=== PATIENT | female | born 1950 | race Caucasian/White ===

== ENCOUNTER 2016-12-14 16:51 | Inpatient (IN) | payer OTHER ==
[~2016-12-14] VITALS: Ht 160 cm; Wt 59.2 kg
[~2016-12-14 16:51] MED LIST: ACET325T33 PO
[2016-12-14 22:30] VITALS: BP 133/83; RESP 18
[2016-12-14 22:33] VITALS: Ht 160 cm; Wt 59.2 kg
[2016-12-14] MEDS ORDERED: BISACODYL (EC) 5 MG TAB PO PRN (23:30)
[2016-12-14] MEDS ORDERED: ACETAMINOPHEN 325 MG TAB PO PRN (23:30)
[2016-12-15] MEDS: PANTOPRAZOLE (EC) 40 MG TAB PO SCH (06:00)
[2016-12-15 07:05] LABS: ADD SCAN DIFF NO
[2016-12-15 07:11] LABS: BASOPHILS % 0.5 % (0.0-2.0); EOSINOPHILS # 0.3 10^3/ul (0.0-0.5); EOSINOPHILS % 7.1 % (0.0-7.0); HEMATOCRIT 34.9 % (37.0-47.0); HEMOGLOBIN 11.2 g/dl (12.0-16.0); LYMPHOCYTES # 1.7 10^3/ul (0.8-2.9); LYMPHOCYTES % 39.7 % (15.0-51.0); MEAN CORPUSCULAR HEMOGLOBIN 30.4 pg (29.0-33.0); MEAN CORPUSCULAR HGB CONC 32.1 g/dl (32.0-37.0); MEAN CORPUSCULAR VOLUME 94.8 fl (82.0-101.0); MEAN PLATELET VOLUME 10.6 fl (7.4-10.4); MONOCYTE # 0.3 10^3/ul (0.3-0.9); NEUTROPHIL # 1.9 10^3/ul (1.6-7.5); NEUTROPHILS % 44.5 % (39.0-77.0); PLATELET COUNT 249 10^3/UL (140-415); RED BLOOD COUNT 3.68 10^6/ul (4.20-5.40); RED CELL DISTRIBUTION WIDTH 14.8 % (11.5-14.5); WHITE BLOOD COUNT 4.2 10^3/ul (4.8-10.8)
[2016-12-15 07:21] VITALS: BP 125/78; RESP 18
[2016-12-15 07:49] LABS: ALBUMIN 3.5 g/dl (3.3-4.9)
[2016-12-15 07:50] LABS: POTASSIUM 3.7 mmol/L (3.5-5.1)
[2016-12-15 07:52] LABS: ALBUMIN/GLOBULIN RATIO 0.89; BILIRUBIN,INDIRECT 0.6 mg/dl (0-1.1); BILIRUBIN,TOTAL 0.6 mg/dl (0.2-1.3); CREATININE 0.68 mg/dl (0.44-1.00); TOTAL PROTEIN 7.4 g/dl (6.1-8.1)
[2016-12-15 07:53] LABS: CALCIUM 9.1 mg/dl (8.4-10.2)
[2016-12-15] MEDS: ENOXAPARIN 40 MG/0.4 ML SYG SC SCH (08:36)
--- NOTE | 2016-12-15 13:08 | HP ---
Date/Time of Note Date/Time of Note DATE: 12/15/16 TIME: 12:51 Assessment/Plan VTE Prophylaxis VTE Prophylaxis Intervention: ambulation Assessment/Plan Chief Complaint/Hosp Course 1. s/p left hip fracture and union, evident deformity and shortening of the left hip. 2. S/p right wrist fracture. Deformity right wrist 3. Pain in left elbow, deformity and possible dislocation 4. Left shoulder pain. 5. Left foot deformity and pain 6. Osteoporosis 7. Liable mood Problems: Assessment/Plan 1. Few X-rays are ordered as well as CT scans 2. Dr Bunn for orthopedic surgery 3. Noncompliance discussed with nurses HPI/ROS Admit Date/Time Admit Date/Time December 14, 2016 at 21:49 Hx of Present Illness Pt reported fracture of the left hip in [place] 2 month ago, there were no surgical repair, she was transferred from hospital to hospital and eventually her left hip were healed with a deformity and shortened her left leg. Pt reported fall and fracture in left wrist 2 years ago. Pt was seen in [facility] for 3 days, there were some X-rays done. Pt was transferred to [facility] 12/14/2016 because it is her network hospital [facility] Constitutional: other (limping problem) Eyes: no complaints ENT: no complaints Respiratory: no complaints Cardiovascular: no complaints Gastrointestinal: no complaints Genitourinary: no complaints Musculoskeletal: bone/joint pain, other (left elbow deformity. left foot pain 6 /10. limping. left shoulder pain and decreased ROM, parestesia left arm), restricted range of motion, swelling Skin: no complaints Neurologic: no complaints Endocrine: no complaints Lymphatic: no complaints Psychological: no complaints, No anxiety, No confusion, No depression, No nl mood/affect, No other, No suicidal PMH/Family/Social Past Medical History Medical History: other (consider herself heALTHY) Past Surgical History Past Surgical Hx: no surgical history Family History Significant Family History: other (HAS NO PLACE TO LIVE, HAS SON IN [facility], OTHER SON ) Social History Alcohol Use: none Smoking Status: Never smoker Drug Use: none Exam/Review of Systems Vital Signs Vitals Vital Signs Date Time Temp Pulse Resp B/P Pulse Ox O2 Delivery O2 Flow Rate FiO2 12/15/16 07:21 98.4 68 18 125/78 98 Exam Exam Mood liable female, refusing medications Constitutional: alert, oriented Psych: no complaints Head: normocephalic Eyes: nl conjunctiva ENMT: nl external ears & nose Neck: supple Respiratory: clear to auscultation Cardiovascular: regular rate and rhythm Genitourinary - Female: nl adnexae Musculoskeletal: muscle weakness, range of motion (decreased left shoulder and left elbow. Definite shortening left hip, deformities of the left foot and right wrist) Extremities: normal pulses Neurological: [employer] II-XII intact Skin: nl turgor Lymph: nl lymph nodes Labs Result Diagram: 12/15/16 0506 12/15/16 0506 Medications Medications Current Medications Acetaminophen (Tylenol Tab) 650 mg Q6H PRN PO PAIN AND OR ELEVATED TEMP; Start 12/14/16 at 23:30 Pantoprazole (Protonix Tab) 40 mg DAILY@06 PO ; Start 12/15/16 at 06:00 Enoxaparin Sodium (Lovenox) 40 mg DAILY SC ; Start 12/15/16 at 09:00 Bisacodyl (Dulcolax) 10 mg BID PRN PO CONSTIPATION; Start 12/14/16 at 23:30 ALEX SAN December 15, 2016 13:01
--- NOTE | 2016-12-15 13:48 | RADRPT ---
PROCEDURE: XR Foot. CLINICAL INDICATION: Deformity TECHNIQUE: AP and lateral views of the left foot are available for review. COMPARISON: None available FINDINGS: The osseous structures are markedly demineralized, limiting detail. There is no cortical destructio n or soft tissue gas. No definite acute osseous abnormality is identified. Hammertoe deformities a re seen at the lesser metatarsals. Enthesopathic changes are noted about the calcaneus. Vascular c alcifications. IMPRESSION: 1. Decreased bone mineral density without radiographic evidence of an acute osseous abnormality or cortical destruction. 2. Please note that MRI is more sensitive in this setting. 3. Hammertoe deformities at the lesser metatarsals. RPTAT: PP .Antonio Brush MD, Date Time Electronically viewed and signed by .Antonio Brush MD, on 12/15/2016 13:48 .d/
[2016-12-15 14:24] LABS: POTASSIUM 3.4 mmol/L (3.5-5.1)
[2016-12-15 14:26] LABS: CREATININE 0.72 mg/dl (0.44-1.00)
[2016-12-15 14:27] LABS: CALCIUM 9.2 mg/dl (8.4-10.2)
--- NOTE | 2016-12-15 14:52 | RADRPT ---
PROCEDURE: CT of the left humerus without contrast CLINICAL INDICATION: Left arm pain. Displacement TECHNIQUE: CT scan of the left humerus was performed. No IV contrast was administered. Coronal a nd sagittal reformatted images were obtained from the axial source images. images. The calculated ra diation dose measures 709.82 mGy centimeters. The CTDI measures 19.72 mGy. Images were reviewed on a high-resolution PACS workstation. One or more of the following dose reduction techniques were used: - Automated exposure control. - Adjustment of the mA and/or kV according to patient size . - Use of iterative reconstruction technique. Images were reviewed on a high-resolution PACS workstation COMPARISON: None. FINDINGS: Osseous structures: There is no acute osseous abnormality or evidence of fracture. There is a sclerotic focus in the hu meral head, presumably a bone island. No additional sclerotic foci are identified. The osseous str uctures are demineralized. Mild arthrosis seen at the glenohumeral joint and at the AC joint. Ther e is also mild arthrosis at the elbow joint. Soft tissues: The muscle bulk about the shoulder and humerus is grossly within normal limits. Calcific densities a re seen at the elbow soft tissues, nonspecific and incompletely assessed. A splenic calcification is seen. IMPRESSION: 1. Decreased bone mineral density without CT evidence of an acute fracture. 2. Mild degenerative changes of the glenohumeral and AC joints. 3. Partially assessed splenic calcification of the from prior trauma or prior granulomas disease. RPTAT: PP .Antonio Brush MD, MD Date Time Electronically viewed and signed by .Antonio Brush MD, MD on 12/15/2016 14:52 .d/
[2016-12-15] MEDS ORDERED: POTASSIUM CHLORIDE (SR) 8 MEQ CAP PO ONE (15:00)
[2016-12-15 19:59] VITALS: BP 127/67; RESP 18
[2016-12-16] MEDS: PANTOPRAZOLE (EC) 40 MG TAB PO SCH (05:21)
[2016-12-16 05:30] LABS: ADD SCAN DIFF NO
[2016-12-16 05:45] LABS: BASOPHILS % 0.5 % (0.0-2.0); EOSINOPHILS # 0.2 10^3/ul (0.0-0.5); EOSINOPHILS % 5.3 % (0.0-7.0); HEMATOCRIT 35.8 % (37.0-47.0); HEMOGLOBIN 11.5 g/dl (12.0-16.0); LYMPHOCYTES # 1.7 10^3/ul (0.8-2.9); LYMPHOCYTES % 40.4 % (15.0-51.0); MEAN CORPUSCULAR HEMOGLOBIN 30.4 pg (29.0-33.0); MEAN CORPUSCULAR HGB CONC 32.1 g/dl (32.0-37.0); MEAN CORPUSCULAR VOLUME 94.7 fl (82.0-101.0); MEAN PLATELET VOLUME 10.1 fl (7.4-10.4); MONOCYTE # 0.3 10^3/ul (0.3-0.9); MONOCYTES % 6.5 % (0.0-11.0); NEUTROPHILS % 47.1 % (39.0-77.0); PLATELET COUNT 231 10^3/UL (140-415); RED BLOOD COUNT 3.78 10^6/ul (4.20-5.40); WHITE BLOOD COUNT 4.3 10^3/ul (4.8-10.8)
[2016-12-16 07:23] VITALS: BP 125/76; RESP 16
[2016-12-16] MEDS: ENOXAPARIN 40 MG/0.4 ML SYG SC SCH (08:34)
--- NOTE | 2016-12-16 17:26 | PN ---
Date/Time of Note Date/Time of Note DATE: 12/16/16 TIME: 17:25 Assessment/Plan VTE Prophylaxis VTE Prophylaxis Intervention: other Assessment/Plan Chief Complaint/Hosp Course old fracture lower ex hx wrist zaida anxiety plan placement and dr fitzpatrick to see Problems: Subjective 24 Hr Interval Summary Cardiovascular: no complaints Gastrointestinal: no complaints Musculoskeletal: bone/joint pain (+) Exam/Review of Systems Vital Signs Vitals Vital Signs Date Time Temp Pulse Resp B/P Pulse Ox O2 Delivery O2 Flow Rate FiO2 12/16/16 07:23 98.3 74 16 125/76 98 Intake and Output 12/15/16 12/15/16 12/16/16 15:00 23:00 07:00 Intake Total 800 ml 600 ml 400 ml Output Total 400 ml 600 ml Balance 800 ml 200 ml -200 ml Exam Respiratory: clear to auscultation Cardiovascular: regular rate and rhythm Gastrointestinal: soft Musculoskeletal: nl extremities to inspection Results Result Diagram: 12/16/16 0510 12/15/16 1345 Results 24 hrs Laboratory Tests Test 12/16/16 05:10 White Blood Count 4.3 L Red Blood Count 3.78 L Hemoglobin 11.5 L Hematocrit 35.8 L Mean Corpuscular Volume 94.7 Mean Corpuscular Hemoglobin 30.4 Mean Corpuscular Hemoglobin Concent 32.1 Red Cell Distribution Width 15.0 H Platelet Count 231 Mean Platelet Volume 10.1 Neutrophils % 47.1 Lymphocytes % 40.4 Monocytes % 6.5 Eosinophils % 5.3 Basophils % 0.5 Nucleated Red Blood Cells % 0.0 Neutrophils # 2.0 Lymphocytes # 1.7 Monocytes # 0.3 Eosinophils # 0.2 Basophils # 0.0 Nucleated Red Blood Cells # 0.0 Medications Medications Current Medications Acetaminophen (Tylenol Tab) 650 mg Q6H PRN PO PAIN AND OR ELEVATED TEMP; Start 12/14/16 at 23:30 Pantoprazole (Protonix Tab) 40 mg DAILY@06 PO ; Start 12/15/16 at 06:00 Enoxaparin Sodium (Lovenox) 40 mg DAILY SC ; Start 12/15/16 at 09:00 Bisacodyl (Dulcolax) 10 mg BID PRN PO CONSTIPATION; Start 12/14/16 at 23:30 LACEY PETERSON MD December 16, 2016 17:26
[2016-12-16 21:04] VITALS: BP 117/59; RESP 18
[2016-12-17] MEDS: PANTOPRAZOLE (EC) 40 MG TAB PO SCH (06:00)
[2016-12-17] MEDS: ENOXAPARIN 40 MG/0.4 ML SYG SC SCH (09:00)
[2016-12-17 14:25] LABS: POTASSIUM 3.4 mmol/L (3.5-5.1)
[2016-12-17 14:28] LABS: CREATININE 0.83 mg/dl (0.44-1.00)
--- NOTE | 2016-12-17 18:05 | PN ---
Date/Time of Note Date/Time of Note DATE: 12/17/16 TIME: 18:04 Assessment/Plan VTE Prophylaxis VTE Prophylaxis Intervention: other Assessment/Plan Chief Complaint/Hosp Course old fracture lower ex hx wrist zaida anxiety plan placement and dr fitzpatrick to see Problems: Subjective 24 Hr Interval Summary Genitourinary: no complaints Musculoskeletal: no complaints Exam/Review of Systems Vital Signs Vitals Vital Signs Date Time Temp Pulse Resp B/P Pulse Ox O2 Delivery O2 Flow Rate FiO2 12/16/16 21:04 98.1 72 18 117/59 96 Intake and Output 12/16/16 12/16/16 12/17/16 15:00 23:00 07:00 Intake Total 840 ml 600 ml Output Total 500 ml Balance 340 ml 600 ml Exam Respiratory: clear to auscultation Cardiovascular: regular rate and rhythm Gastrointestinal: soft Musculoskeletal: nl extremities to inspection Results Result Diagram: 12/16/16 0510 12/17/16 1335 Results 24 hrs Laboratory Tests Test 12/17/16 13:35 Sodium Level 142 Potassium Level 3.4 L Chloride Level 104 Carbon Dioxide Level 24 Anion Gap 17 H Blood Urea Nitrogen 19 Creatinine 0.83 Glucose Level 113 Calcium Level 9.0 Medications Medications Current Medications Acetaminophen (Tylenol Tab) 650 mg Q6H PRN PO PAIN AND OR ELEVATED TEMP; Start 12/14/16 at 23:30 Pantoprazole (Protonix Tab) 40 mg DAILY@06 PO ; Start 12/15/16 at 06:00 Enoxaparin Sodium (Lovenox) 40 mg DAILY SC ; Start 12/15/16 at 09:00 Bisacodyl (Dulcolax) 10 mg BID PRN PO CONSTIPATION; Start 12/14/16 at 23:30 LACEY PETERSON MD December 17, 2016 18:05
--- NOTE | 2016-12-17 18:33 | RADRPT ---
PROCEDURE: Left femur x-ray CLINICAL INDICATION: Left leg pain. TECHNIQUE: AP and lateral views of the femur were obtained. COMPARISON: None FINDINGS: Chronic midshaft fracture dislocation of the left femur with osseous bridging along the posterior la teral aspect of the distal fracture fragment which is proximally displaced by 13 cm with foreshorten ing of the left upper leg. No acute fracture is identified. Oblique intertrochanteric radiolucency which appears chronic. The knee and ankle joint are unremarkable . IMPRESSION: 1. Chronic partially healed midshaft fracture dislocation of the left femur with foreshortening of the upper leg and osseous bridging as described in detail above. 2. Chronic nondisplaced intertrochanteric left hip fracture. RPTAT:AAJJ Physician Karlene Date Time Electronically viewed and signed by Physician Karlene on 12/17/2016 18:32 SHIKHA/
--- NOTE | 2016-12-17 18:34 | RADRPT ---
PROCEDURE: XR Pelvis. CLINICAL INDICATION: Hx of fracture. TECHNIQUE: Single AP view of the pelvis. COMPARISON: No prior studies are available for comparison. FINDINGS: There are no acute fractures or dislocations. The subtle oblique left intertrochanteric and cortical irregularity compatible with remote healed intertrochanteric fracture. There are no arthritic, neop lastic or inflammatory changes. The osseous mineralization is normal. The sacroiliac joints are normal. IMPRESSION: No acute fracture or dislocation. Findings suggestive of chronic healed left intertrochanteric frac ture. RPTAT:AAJJ Physician Karlene Date Time Electronically viewed and signed by Physician Karlene on 12/17/2016 18:34 SHIKHA/
--- NOTE | 2016-12-17 18:42 | RADRPT ---
PROCEDURE: Left elbow x-ray CLINICAL INDICATION: Follow-up fracture. Pain. TECHNIQUE: AP, lateral, oblique views of the left elbow COMPARISON: CT upper extremity 12/15/2016 FINDINGS: Chronic fracture of the proximal ulna with superior and posterior displacement of the olecranon frac ture fragment. Of the fracture fragments well corticated. No elevation of the anterior posterior f at pad suggest acute fracture. No other soft tissue abnormality. IMPRESSION: 1. No acute fracture or dislocation. 2. Chronic fracture dislocation of the proximal ulna with posterior and superior displacement of we ll corticated fracture fragment as described above. 3. No gross soft tissue abnormality. RPTAT:AAJJ Physician Karlene Date Time Electronically viewed and signed by Physician Karlene on 12/17/2016 18:42 SHIKHA/
--- NOTE | 2016-12-17 18:46 | RADRPT ---
PROCEDURE: XR Left Wrist. CLINICAL INDICATION: Hx of fracture. TECHNIQUE: AP, lateral and oblique views of the left wrist were performed. COMPARISON: No prior studies are available for comparison. FINDINGS: Irregularity of the radial styloid was compatible with healed fracture. No gross evidence of acute fracture. Correlate clinically . The carpal bones are normally aligned. The distal ulna intact. The visualized bones of the hand are unremarkable IMPRESSION: Irregularity of the radial styloid was compatible with remote healed fracture. No soft tissue abnor mality or evidence of acute fracture. RPTAT:AAJJ Physician Karlene Date Time Electronically viewed and signed by Physician Karlene on 12/17/2016 18:46 SHIKHA/
--- NOTE | 2016-12-17 18:51 | RADRPT ---
PROCEDURE: X-ray left shoulder CLINICAL INDICATION: Left shoulder pain with history of fracture, not otherwise specified. TECHNIQUE: 3 views left shoulder. COMPARISON: None FINDINGS: Demineralization limits evaluation of fine osseous detail. Bone island in the left humeral head. N o acute fracture dislocation. Soft tissues unremarkable. IMPRESSION: No acute fracture. RPTAT: UU Physician Haresh Date Time Electronically viewed and signed by Brandee Stringer Physician on 12/17/2016 18:50 RS/
[2016-12-17 19:56] VITALS: BP 136/77; RESP 16
[2016-12-18] MEDS: PANTOPRAZOLE (EC) 40 MG TAB PO SCH (06:00)
[2016-12-18 07:40] VITALS: BP 116/66; RESP 18
[2016-12-18] MEDS: ENOXAPARIN 40 MG/0.4 ML SYG SC SCH (07:57)
--- NOTE | 2016-12-18 17:33 | CONS ---
DATE OF ADMISSION: 12/14/2016 DATE OF CONSULTATION: 12/17/2016 TYPE OF CONSULTATION: Orthopedic surgical HISTORY OF PRESENT ILLNESS: The patient is a 65-year-old female who was transferred then from [facility] at [facility] on 12/14/2016. because of the insurance arrangement. She wa s admitted to the [facility] on 12/11/2016 when she showed up in the emergency room complaining of shortening and pain involving her left leg. Her history was somewhat convoluted and sometimes inconsistent; however, the summary of her problem is as follows: She was in [place] visiting her son in the first of October 2016 when she fell and had sustained an injury. Summarizing her story, her main problem was a painful swelling involving her l eft thigh along with the painful swelling and limited motion involving her left elbow and left upper extremity. She also had some pain involving her left hip. At that time, she was found to have fra ctures involving her left femur. Whether she was clearly aware of the fact that she had an injury t o her left hip and left elbow is not clear. For her left femur fracture, she was seen by several do ctors and surgical treatment or nonsurgical treatment was recommended. However, her surgical treatm ent was not carried out because of the lack of insurance and financial support. She has been transf erred into several hospitals until she came to [facility] about 1 week prior to her transfer to [facility]. Until now, there were no surgical procedures performed in her left hip or le ft femur or left elbow. PHYSICAL EXAMINATION: My examination revealed a 65-year-old female who is in not any acute pain at this time. There was an obvious shortening of the left thigh; however, she was able to move her leg and she was able to carry out a fair amount of range of motion of the left hip and left knee at thi s time other than mildly obvious shortening. There does not seem to be any neurovascular compromise . The range of motion of the left hip was fair with minimal pain. She was also able to carry out f air degree range of motion of the left elbow. The only restriction was that she was not able to ext end her left elbow fully. DIAGNOSTIC STUDIES: There was a palpable bony fragment, most probably a fracture in proximal segmen t of the olecranon process which was pulled upward by the triceps tendon. Multiple x-rays were performed and revealed the following: There is a spiral fracture involving the midshaft of the left femur which is partially healing in a shortened position. According to radiol ogic measurement, the left femur is shortened by about 13 cm. There was a partial callus formation. X-rays of the left hip revealed a possible undisplaced intertrochanteric fracture in the left hip which is healing in good alignment. X-rays of the left elbow revealed an olecranon fracture with the proximal fragment pulled proximally or upward. DIAGNOSTIC IMPRESSION: 1. Spiral fracture involving the midshaft of the left femur healing in a 13 cm shortened position, causing considerable shortening of the left lower extremity. 2. Intertrochanteric fracture of the left hip healing in good alignment. 3. Fracture of the left olecranon with the proximal fragment pulled upward in a displaced position. RECOMMENDATIONS FOR MANAGEMENT: 1. The intertrochanteric fracture of the left hip is healing fine in undisplaced position and it di d not cause any additional problems. 2. Spiral fracture ____ in malalignment and shortened position. The treatment option at this time is: 1. Accept the present condition and try to get by shoe lift, etc. ____ also needs a surgical interv ention which probably includes the taking down of the healing which is going on in malunited and prince rtened position followed by an intramedullary nailing ____original anatomic length and alignment. T his surgery would cause possibly major complications. First of all, the blood vessels and nerves, w leonah is comfortable in a shortened position now for about 2 1-1/2 months may cause neurologic compro mise or circulatory compromise when it is forcefully lengthened by 13 cm disk. This can cause paral ysis of the left lower extremity or ischemia of the left lower extremity, causing functional problem s and possibly causing amputation. In addition, by taking down all of the ongoing ____in the perios teal area of the involved segment, the extramedullary circulation with the compromise and subsequent intramedullary nailing may compromise the intramedullary blood supplies, leaving the considerable s egment of the femur, including fractured area avascular, and this may cause problems of nonunion wit h possible breakage of the intramedullary device, and because of these reasons, surgical treatment can cause considerable compromise with possible paralysis and necrosis and nonunion of the fracture itself. 2. ____fracture of the olecranon with proximal migration of the fracture fragment by the pulling of the triceps muscle. Her range of motion of the left elbow is surprisingly good with minimal pain at this time. If this could be fixed with the open reduction and internal fixation at this time, david russell may end up with ankylosis of the elbow joint in an extended position, which she worse than the ank ylosis or stiffness in a flexed position. Considering all the possible problems, following the surgical intervention at this time, if she insi sts on having a surgical treatment done, she should be transferred to the [facility] for a higher level of care in order to avoid above-mentioned possible complications. Dictated By: VIVI MEJIAS/KELSEY Conf#: [id number] DID#: [id number]
--- NOTE | 2016-12-18 19:31 | PDOCDIS ---
Discharge Instructions CONDITION Patient Condition: Stable HOME CARE INSTRUCTIONS: Special Diet: cardiac diet ACTIVITY: Activity Restrictions: Slowly Increase Activity FOLLOW UP/APPOINTMENTS Appointments f/u own pcp 1 wk ortho referral out pt at [facility] out pt LACEY PETERSON MD December 18, 2016 19:31
[2016-12-18] MEDS ORDERED: BISA5TAB6 PO (19:32)
[2016-12-18] MEDS ORDERED: ACET325T40 PO (19:32)
--- NOTE | 2016-12-18 19:34 | PN ---
Date/Time of Note Date/Time of Note DATE: 12/18/16 TIME: 19:33 Assessment/Plan VTE Prophylaxis VTE Prophylaxis Intervention: other Assessment/Plan Chief Complaint/Hosp Course old fracture lower ex hx wrist zaida anxiety plan per dr fitzpatrick home ok Problems: Subjective 24 Hr Interval Summary Cardiovascular: no complaints Gastrointestinal: no complaints Exam/Review of Systems Vital Signs Vitals Vital Signs Date Time Temp Pulse Resp B/P Pulse Ox O2 Delivery O2 Flow Rate FiO2 12/18/16 07:40 98.2 77 18 116/66 96 Intake and Output 12/17/16 12/17/16 12/18/16 15:00 23:00 07:00 Intake Total 760 ml 800 ml Output Total 400 ml 150 ml Balance 360 ml 650 ml Exam Respiratory: clear to auscultation Cardiovascular: regular rate and rhythm Gastrointestinal: soft Results Result Diagram: 12/16/16 0510 12/17/16 1335 Medications Medications Current Medications Acetaminophen (Tylenol Tab) 650 mg Q6H PRN PO PAIN AND OR ELEVATED TEMP; Start 12/14/16 at 23:30 Pantoprazole (Protonix Tab) 40 mg DAILY@06 PO ; Start 12/15/16 at 06:00 Enoxaparin Sodium (Lovenox) 40 mg DAILY SC ; Start 12/15/16 at 09:00 Bisacodyl (Dulcolax) 10 mg BID PRN PO CONSTIPATION; Start 12/14/16 at 23:30 Potassium Chloride (Klor-Con 20) 20 meq DAILY PO ; Start 12/19/16 at 09:00 LACEY PETERSON MD December 18, 2016 19:34
[2016-12-18] MEDS: POTASSIUM CHLORIDE (SR) 20 MEQ TAB PO SCH (21:44)
[2016-12-19] MEDS: PANTOPRAZOLE (EC) 40 MG TAB PO SCH (06:00)
[2016-12-19] MEDS: POTASSIUM CHLORIDE (SR) 20 MEQ TAB PO SCH (08:45)
[2016-12-19] MEDS: ENOXAPARIN 40 MG/0.4 ML SYG SC SCH (08:45)
== END 2016-12-19 15:40 | disposition home or self-care (01) | DRG 561 ==
LOC: MS2 21:49
PROVIDERS: ADMIT Internal Medicine Nephrology; ATTEND Internal Medicine Nephrology
DX: S72.342D Displaced spiral fracture of shaft of left femur, subsequent encounter for closed fracture with routine healing (principal); M81.0 Age-related osteoporosis without current pathological fracture; S72.142D Displaced intertrochanteric fracture of left femur, subsequent encounter for closed fracture with routine healing; S52.022D Displaced fracture of olecranon process without intraarticular extension of left ulna, subsequent encounter for closed fracture with routine healing; M21.752 Unequal limb length (acquired), left femur; M21.931 Unspecified acquired deformity of right forearm; X58.XXXD Exposure to other specified factors, subsequent encounter
CPT/HCPCS: 72170; 73030; 73070; 73200; 73550; 73620; 80048; 80053; 85025; J1650